=== PATIENT | female | born 1945 | race African-American/Black ===

== ENCOUNTER 2017-10-26 11:29 | Outpatient (CLI) | payer MEDICARE, MEDICAID | END 2017-10-26 11:30 | disposition home or self-care (01) | LOC: BICMAMMO 11:29 | PROVIDERS: ATTEND Family Medicine | DX: Z12.31 Encounter for screening mammogram for malignant neoplasm of breast (principal) | CPT/HCPCS: 77063; 77067 ==

== ENCOUNTER 2018-10-27 08:56 | Outpatient (CLI) | payer MEDICARE, MEDICAID | END 2018-10-27 08:57 | disposition home or self-care (01) | LOC: BICMAMMO 08:56 | PROVIDERS: ATTEND Advanced Practice Midwife | DX: Z12.31 Encounter for screening mammogram for malignant neoplasm of breast (principal); Z80.3 Family history of malignant neoplasm of breast | CPT/HCPCS: 77063; 77067 ==

== ENCOUNTER 2019-10-28 10:57 | Outpatient (CLI) | payer MEDICARE, MEDICAID ==
--- NOTE | 2019-10-28 11:50 | MMO ---
Bilateral MAMMO Bilat Screen [facility]. CLINICAL HISTORY: Patient is 74 years old and is seen for screening. The patient has the following family history of breast cancer: cousin female, MATERNAL. The patient has no personal history of cancer. The patient has a history of right Stereotatic Biopsy in - benign. VIEWS: The views performed were: bilateral craniocaudal with tomosynthesis and bilateral mediolateral oblique with tomosynthesis. FILMS COMPARED: The present examination has been compared to prior imaging studies performed at [facility] on 08/20/2015, 09/16/2016, 10/26/2017 and 10/27/2018. This study has been interpreted with the assistance of computer-aided detection. MAMMOGRAM FINDINGS: The breasts are heterogeneously dense, which could obscure a lesion on mammography. There are stable benign appearing calcifications seen in both breasts. There are no suspicious masses, suspicious calcifications, or new areas of architectural distortion. IMPRESSION: THERE IS NO MAMMOGRAPHIC EVIDENCE OF MALIGNANCY. A ROUTINE FOLLOW-UP MAMMOGRAM IN 1 YEAR IS RECOMMENDED. THE RESULTS OF THIS EXAM WERE SENT TO THE PATIENT. ACR BI-RADS Category 2 - Benign finding MAMMOGRAPHY NOTE: 1. A negative mammogram report should not delay a biopsy if a dominant of clinically suspicious mass is present. 2. Approximately 10% to 15% of breast cancers are not detected by mammography. 3. Adenosis and dense breasts may obscure an underlying neoplasm. Reported by: TOÑO MALDONADO MD Electonically Signed: [id number]
== END 2019-10-28 10:58 | disposition home or self-care (01) ==
LOC: BICMAMMO 10:57
PROVIDERS: ATTEND Family Medicine
DX: Z12.31 Encounter for screening mammogram for malignant neoplasm of breast (principal); Z80.3 Family history of malignant neoplasm of breast
CPT/HCPCS: 77063; 77067

== ENCOUNTER 2020-11-23 11:42 | Outpatient (CLI) | payer MEDICARE, MEDICAID | END 2020-11-23 11:43 | disposition home or self-care (01) | LOC: BICMAMMO 11:42 | PROVIDERS: ATTEND Family Medicine | DX: Z12.31 Encounter for screening mammogram for malignant neoplasm of breast (principal); Z91.89 Other specified personal risk factors, not elsewhere classified; Z80.3 Family history of malignant neoplasm of breast | CPT/HCPCS: 77063; 77067 ==

== ENCOUNTER 2021-01-03 11:19 | Outpatient (CLI) | payer MEDICARE, MEDICAID | END 2021-01-03 11:20 | disposition home or self-care (01) | LOC: CTENTCT 11:19 | PROVIDERS: ATTEND Otolaryngology Plastic Surgery within the Head & Neck | DX: J32.9 Chronic sinusitis, unspecified (principal) | CPT/HCPCS: 70486 ==

== ENCOUNTER 2022-02-20 11:56 | Outpatient (CLI) | payer MEDICARE, MEDICAID | END 2022-02-20 11:57 | disposition home or self-care (01) | LOC: BICMAMMO 11:56 | PROVIDERS: ATTEND Family Medicine | DX: Z12.31 Encounter for screening mammogram for malignant neoplasm of breast (principal); Z91.89 Other specified personal risk factors, not elsewhere classified; Z80.3 Family history of malignant neoplasm of breast | CPT/HCPCS: 77063; 77067 ==

== ENCOUNTER 2022-03-06 14:20 | Outpatient (CLI) | payer MEDICARE, MEDICAID | END 2022-03-06 14:21 | disposition home or self-care (01) | LOC: BICRAD 14:20 | PROVIDERS: ATTEND Internal Medicine Hematology & Oncology | DX: C90.00 Multiple myeloma not having achieved remission (principal); D47.2 Monoclonal gammopathy | CPT/HCPCS: 77075 ==

== ENCOUNTER 2023-04-03 10:11 | Outpatient (CLI) | payer MEDICARE, MEDICAID | END 2023-04-03 10:12 | disposition home or self-care (01) | LOC: BICMAMMO 10:11 | PROVIDERS: ATTEND Family Medicine | DX: Z12.31 Encounter for screening mammogram for malignant neoplasm of breast (principal); Z80.3 Family history of malignant neoplasm of breast; Z91.89 Other specified personal risk factors, not elsewhere classified | CPT/HCPCS: 77063; 77067 ==

== ENCOUNTER 2025-09-26 10:50 | Outpatient (CLI) | payer MEDICARE, MEDICAID | END 2025-09-26 10:51 | disposition home or self-care (01) | LOC: RAD 10:50 | PROVIDERS: ATTEND Otolaryngology Plastic Surgery within the Head & Neck | DX: I69.891 Dysphagia following other cerebrovascular disease (principal); R13.11 Dysphagia, oral phase; J38.01 Paralysis of vocal cords and larynx, unilateral | CPT/HCPCS: 74230 ==